=== PATIENT | male | born 1965 | race Caucasian/White ===

== ENCOUNTER 2020-02-27 22:57 | Inpatient (IN) | payer MEDICAID ==
[~2020-02-27] VITALS: Ht 172.7 cm; Wt 82.7 kg
[~2020-02-27 22:57] MED LIST: CIPRO500 MG PO; FLAGYL500 MG PO; MIRUD PO
[2020-02-28 00:35] LABS: BASOPHIL % 0.2 % (0.2-1.5); PLATELET COUNT 217 x10^3mcL (152-348); RED CELL DISTRIBUTION WIDTH 13.9 % (12.1-16.2)
[2020-02-28 00:49] LABS: CALCIUM 8.4 mg/dL (8.5-10.1); CHLORIDE SERUM 100 mmol/L (98-107); CREATININE SERUM 0.8 mg/dL (0.7-1.3); GFR1 > 60 mL/min; GLUCOSE SERUM 127 mg/dL (74-106); POTASSIUM SERUM 3.3 mmol/L (3.5-5.1); SODIUM SERUM 134 mmol/L (136-145)
[2020-02-28 00:51] LABS: ALBUMIN 3.8 g/dL (3.4-5.0); ALKALINE PHOSPHATASE 79 U/L (46-116); ALT/SGPT 36 U/L (16-63); AST/SGOT 21 U/L (15-37); BILIRUBIN TOTAL 0.8 mg/dL (0.20-1.00); LIPASE 68 IU/L (73-393)
[2020-02-28 01:31] LABS: microscopic required? YES; urine erythrocyte NEGATIVE (NEGATIVE)
[2020-02-28 03:04] LABS: CHOLESTEROL/HDL RATIO 4.4
[2020-02-28 03:36] LABS: AMPHETAMINE QUAL UR NONE DETECTED (See below)
[2020-02-28 09:50] LABS: BASOPHIL % 0.3 % (0.2-1.5); PLATELET COUNT 198 x10^3mcL (152-348); RED CELL DISTRIBUTION WIDTH 14.1 % (12.1-16.2)
[2020-02-28 10:00] LABS: CALCIUM 8.1 mg/dL (8.5-10.1); CARBON DIOXIDE 27.6 mmol/L (21-32); CHLORIDE SERUM 100 mmol/L (98-107); CREATININE SERUM 0.6 mg/dL (0.7-1.3); GFR1 > 60 mL/min; GLUCOSE SERUM 137 mg/dL (74-106); SODIUM SERUM 135 mmol/L (136-145)
[2020-02-28 16:11] VITALS: BP 132/70
[2020-02-28 23:13] VITALS: BP 140/86
[2020-02-29 05:36] VITALS: BP 139/82
[2020-02-29 08:04] LABS: BASOPHIL % 0.2 % (0.2-1.5); PLATELET COUNT 211 x10^3mcL (152-348); RED CELL DISTRIBUTION WIDTH 14.1 % (12.1-16.2)
[2020-02-29 09:05] VITALS: BP 128/103
[2020-02-29 09:15] LABS: CALCIUM 8.4 mg/dL (8.5-10.1); CARBON DIOXIDE 25.2 mmol/L (21-32); CHLORIDE SERUM 99 mmol/L (98-107); CREATININE SERUM 0.7 mg/dL (0.7-1.3); GFR1 > 60 mL/min; GLUCOSE SERUM 109 mg/dL (74-106); MAGNESIUM 2.3 mg/dL (1.8-2.4); PHOSPHOROUS 2.4 mg/dL (2.5-4.9); POTASSIUM SERUM 3.5 mmol/L (3.5-5.1); SODIUM SERUM 134 mmol/L (136-145)
[2020-02-29 12:52] VITALS: BP 134/92
[2020-02-29] MEDS ORDERED: METFORMIN HCL500 M4 PO (15:58)
[2020-02-29] MEDS ORDERED: ATORVASTATIN CA20 M1 GT (16:02)
[2020-02-29 16:06] VITALS: BP 116/66
[2020-02-29 16:10] VITALS: BP 134/92
[2020-02-29] MEDS ORDERED: COZAAR25 M1 PO (16:28)
== END 2020-02-29 18:04 | disposition home or self-care (01) | DRG 244 ==
LOC: ED 22:57 → DU 02-28 01:38 → MU 02-28 01:38
PROVIDERS: Emergency Medicine; Internal Medicine; ADMIT Family Medicine; ATTEND Family Medicine
DX: K57.92 Diverticulitis of intestine, part unspecified, without perforation or abscess without bleeding (principal); U07.1 COVID-19; E11.65 Type 2 diabetes mellitus with hyperglycemia; I10 Essential (primary) hypertension; E87.6 Hypokalemia; Z79.899 Other long term (current) drug therapy
CPT/HCPCS: G0378; J0696; J0744; J2270; J2405; J3490; J7040; J7060; U0003